=== PATIENT | female | born 1960 | race Two or more races ===

== ENCOUNTER 2018-06-10 07:46 | Outpatient (CLI) | payer OTHER ==
[~2018-06-10 07:46] MED LIST: INDERAL LA80 MG PO; LISINOPRIL20 MG PO
== END 2018-06-10 08:10 | disposition home or self-care (01) ==
LOC: LAB 07:46
DX: E56.1 Deficiency of vitamin K (principal); M81.8 Other osteoporosis without current pathological fracture; E21.3 Hyperparathyroidism, unspecified; M79.672 Pain in left foot

== ENCOUNTER 2018-08-07 06:17 | Outpatient (CLI) | payer OTHER ==
[2018-08-13] MEDS ORDERED: IMITREX PO (12:51)
== END 2018-08-07 06:24 | disposition home or self-care (01) ==
LOC: LAB 06:17
DX: D64.89 Other specified anemias (principal); E88.89 Other specified metabolic disorders; D68.8 Other specified coagulation defects; N39.0 Urinary tract infection, site not specified; Z22.322 Carrier or suspected carrier of Methicillin resistant Staphylococcus aureus; Z76.89 Persons encountering health services in other specified circumstances; I49.8 Other specified cardiac arrhythmias

== ENCOUNTER 2018-08-21 06:16 | Day surgery (SDC) | payer OTHER ==
[~2018-08-21 06:16] MED LIST changes: +IMITREX PO
== END 2018-08-21 15:50 | disposition home or self-care (01) ==
LOC: CIR.AMB 06:16
DX: M19.172 Post-traumatic osteoarthritis, left ankle and foot (principal); S92.312K Displaced fracture of first metatarsal bone, left foot, subsequent encounter for fracture with nonunion; T84.84XA Pain due to internal orthopedic prosthetic devices, implants and grafts, initial encounter; M65.872 Other synovitis and tenosynovitis, left ankle and foot

== ENCOUNTER 2018-10-14 13:37 | Outpatient (CLI) | payer OTHER | END 2018-10-14 13:39 | disposition home or self-care (01) | LOC: RAD 13:37 | DX: M79.672 Pain in left foot (principal) ==

== ENCOUNTER 2018-11-25 14:11 | Outpatient (CLI) | payer OTHER | END 2018-11-25 17:00 | disposition home or self-care (01) | LOC: RAD 14:11 | DX: M79.672 Pain in left foot (principal) ==

== ENCOUNTER → 2019-01-06 | Outpatient (CLI) | payer OTHER | END | disposition home or self-care (01) | LOC: RAD 14:44 | DX: S93.32 Subluxation and dislocation of tarsometatarsal joint (principal); M79.672 Pain in left foot ==

== ENCOUNTER 2019-07-22 08:04 | Outpatient (CLI) | payer OTHER | END 2019-07-22 08:10 | disposition home or self-care (01) | LOC: RAD 08:04 | PROVIDERS: ATTEND Orthopaedic Surgery | DX: M79.672 Pain in left foot (principal); I87.2 Venous insufficiency (chronic) (peripheral); H34.821 Venous engorgement, right eye; H34.822 Venous engorgement, left eye ==

== ENCOUNTER 2019-07-22 11:00 | Outpatient (CLI) | payer OTHER | END 2019-07-22 11:30 | disposition home or self-care (01) | LOC: NUCLEAR 11:00 | PROVIDERS: ATTEND Obstetrics & Gynecology Gynecology | DX: H34.821 Venous engorgement, right eye (principal); H34.822 Venous engorgement, left eye; I87.2 Venous insufficiency (chronic) (peripheral) ==

== ENCOUNTER 2019-11-03 14:01 | Outpatient (CLI) | payer OTHER | END 2019-11-03 14:14 | disposition home or self-care (01) | LOC: RAD 14:01 | PROVIDERS: ATTEND Orthopaedic Surgery | DX: S93.32 Subluxation and dislocation of tarsometatarsal joint (principal); M79.672 Pain in left foot ==

== ENCOUNTER 2020-02-16 16:02 | Outpatient (CLI) | payer OTHER | END 2020-02-16 16:09 | disposition home or self-care (01) | LOC: RAD 16:02 | PROVIDERS: ATTEND Orthopaedic Surgery | DX: M20.11 Hallux valgus (acquired), right foot (principal); M79.671 Pain in right foot ==

== ENCOUNTER 2020-02-22 05:55 | Day surgery (SDC) | payer OTHER | END 2020-02-22 16:30 | disposition home or self-care (01) | LOC: CIR.AMB 05:55 | PROVIDERS: ATTEND Orthopaedic Surgery | DX: T84.84XA Pain due to internal orthopedic prosthetic devices, implants and grafts, initial encounter (principal); M20.12 Hallux valgus (acquired), left foot; M24.575 Contracture, left foot; M21.612 Bunion of left foot; Z20.828 Contact with and (suspected) exposure to other viral communicable diseases ==

== ENCOUNTER 2020-04-13 13:54 | Outpatient (CLI) | payer OTHER | END 2020-04-13 14:04 | disposition home or self-care (01) | LOC: RAD 13:54 | PROVIDERS: ATTEND Orthopaedic Surgery | DX: M79.672 Pain in left foot (principal); M20.12 Hallux valgus (acquired), left foot ==

== ENCOUNTER → 2020-05-31 | Outpatient (CLI) | payer OTHER | END | disposition home or self-care (01) | LOC: RAD 14:56 | PROVIDERS: ATTEND Orthopaedic Surgery | DX: M79.672 Pain in left foot (principal); M20.12 Hallux valgus (acquired), left foot ==

== ENCOUNTER 2020-08-22 08:58 | Outpatient (CLI) | payer OTHER | END 2020-08-22 15:02 | disposition home or self-care (01) | LOC: LAB 08:58 | PROVIDERS: ATTEND Orthopaedic Surgery | DX: E55.9 Vitamin D deficiency, unspecified (principal); M85.9 Disorder of bone density and structure, unspecified; E21.3 Hyperparathyroidism, unspecified; M81.8 Other osteoporosis without current pathological fracture; E88.9 Metabolic disorder, unspecified; E83.42 Hypomagnesemia; E56.1 Deficiency of vitamin K ==

== ENCOUNTER 2020-09-26 11:50 | Outpatient (CLI) | payer OTHER | END 2020-09-26 12:01 | disposition home or self-care (01) | LOC: RAD 11:50 | PROVIDERS: ATTEND Orthopaedic Surgery | DX: M79.672 Pain in left foot (principal) ==

== ENCOUNTER 2021-05-07 09:42 | Outpatient (CLI) | payer OTHER | END 2021-05-07 09:55 | disposition home or self-care (01) | LOC: LAB 09:42 | PROVIDERS: ATTEND Orthopaedic Surgery | DX: D55.9 Anemia due to enzyme disorder, unspecified (principal); M85.9 Disorder of bone density and structure, unspecified; E21.3 Hyperparathyroidism, unspecified; E88.9 Metabolic disorder, unspecified; M81.8 Other osteoporosis without current pathological fracture; E56.1 Deficiency of vitamin K; E83.42 Hypomagnesemia ==

== ENCOUNTER 2021-07-18 09:53 | Outpatient (CLI) | payer OTHER | END 2021-07-18 10:27 | disposition home or self-care (01) | LOC: RAD 09:53 | PROVIDERS: ATTEND Orthopaedic Surgery | DX: M81.0 Age-related osteoporosis without current pathological fracture (principal) ==

== ENCOUNTER 2021-08-27 09:03 | Outpatient (CLI) | payer OTHER | END 2021-08-27 09:10 | disposition home or self-care (01) | LOC: TOM 09:03 | PROVIDERS: ATTEND Urology | DX: R31.21 Asymptomatic microscopic hematuria (principal) ==

== ENCOUNTER → 2021-08-27 11:47 | Outpatient (CLI) | payer OTHER | END | disposition home or self-care (01) | LOC: LAB 11:47 | PROVIDERS: ATTEND Radiology Diagnostic Radiology | DX: R31.21 Asymptomatic microscopic hematuria (principal) ==

== ENCOUNTER 2023-04-21 11:29 | Outpatient (CLI) | payer OTHER | END 2023-04-21 11:42 | disposition home or self-care (01) | LOC: RAD 11:29 | PROVIDERS: ATTEND Orthopaedic Surgery | DX: M25.511 Pain in right shoulder (principal); M79.672 Pain in left foot ==

== ENCOUNTER 2023-05-29 14:10 | Outpatient (CLI) | payer OTHER | END 2023-05-29 14:12 | disposition home or self-care (01) | LOC: RAD 14:10 | PROVIDERS: ATTEND Orthopaedic Surgery | DX: M79.641 Pain in right hand (principal); M79.644 Pain in right finger(s) ==

== ENCOUNTER 2023-12-08 09:31 | Outpatient (CLI) | payer OTHER | END 2023-12-08 09:34 | disposition home or self-care (01) | LOC: LAB 09:31 | PROVIDERS: ATTEND Orthopaedic Surgery | DX: E56.1 Deficiency of vitamin K (principal); E83.42 Hypomagnesemia ==

== ENCOUNTER 2023-12-08 09:56 | Outpatient (CLI) | payer OTHER | END 2023-12-08 10:00 | disposition home or self-care (01) | LOC: RAD 09:56 | PROVIDERS: ATTEND Orthopaedic Surgery | DX: M79.671 Pain in right foot (principal) ==

== ENCOUNTER → 2024-03-24 10:38 | Outpatient (CLI) | payer OTHER | END | disposition home or self-care (01) | LOC: LAB 10:38 | PROVIDERS: ATTEND Orthopaedic Surgery | DX: M85.9 Disorder of bone density and structure, unspecified (principal); E55.9 Vitamin D deficiency, unspecified ==

== ENCOUNTER 2024-03-24 11:28 | Outpatient (CLI) | payer OTHER | END 2024-03-24 11:34 | disposition home or self-care (01) | LOC: RAD 11:28 | PROVIDERS: ATTEND Orthopaedic Surgery | DX: M20.11 Hallux valgus (acquired), right foot (principal) ==

== ENCOUNTER → 2024-08-04 09:28 | Outpatient (CLI) | payer OTHER ==
[2024-08-04 10:23] LABS: BASO % 0.3 % (0.1-1.2); EOS # 0.15 (0.04-0.54); EOS % 1.5 % (0.7-7.0); HEMATOCRIT 43.6 % (34.1-44.9); HEMOGLOBIN 14.3 g/dL (11.2-15.7); LYMPH # 4.09 (1.18-3.74); LYMPH % 39.7 % (19.3-53.1); MEAN CORPUSCULAR HEMOGLOBIN 28.4 pg (25.6-32.2); MONO # 0.65 (0.24-0.82); MONO % 6.3 % (4.7-12.5); NEUT # 5.32 (1.56-6.13); NEUT % 51.7 % (34.0-71.1); PLATELET COUNT 280 K/uL (163-369); RED BLOOD COUNT 5.04 M/uL (3.93-5.22); RED CELL DISTRIBUTION WIDTH 13.7 % (11.6-14.4)
[2024-08-04 10:39] LABS: URINE APPEARANCE Clear; URINE BILIRRUBIN Negative (NEGATIVE); URINE COLOR Yellow; URINE GLUCOSE Negative (NEGATIVE); URINE KETONE Negative (NEGATIVE); URINE LEUKOCYTE Moderate; URINE NITRATE Negative; URINE PROTEIN Negative (NEGATIVE); URINE UROBILINOGEN 0.2 E.U./dl
[2024-08-04 10:40] LABS: URINE EPITHELIAL CELLS 6.8 uL (0.0-38.8); URINE WBC 102.5 uL (0.0-23.2)
[2024-08-04 10:42] LABS: URINE BACTERIA > 9821.5 uL (0.0-1933)
[2024-08-04 10:44] LABS: URINE BLOOD Traces
[2024-08-04 10:53] LABS: INR 0.97; PARTIAL THROMBOPLASTIN TIME 27.9 SECONDS (22.0-34.0); PROTHROMBIN TIME 10.6 SECONDS (9.0-11.5)
[2024-08-04 10:57] LABS: ALBUMIN 3.9 gm/dL (3.4-5.0); BILIRUBIN TOTAL 0.68 mg/dL (0.3-1.2); CALCIUM 9.4 mg/dL (8.5-10.1); COL EPI 109 SECONDS (82-175); CREATININE SERUM 0.71 mg/dL (0.55-1.02); GFR 83.14; GLOBULINA 3.1 G/DL (2.4-3.5); POTASSIUM 4.16 mEq/L (3.5-5.1)
== END | disposition home or self-care (01) ==
LOC: RAD 09:28
PROVIDERS: ATTEND Orthopaedic Surgery
DX: I10 Essential (primary) hypertension (principal); Z76.89 Persons encountering health services in other specified circumstances; D64.9 Anemia, unspecified; E88.9 Metabolic disorder, unspecified; D68.8 Other specified coagulation defects; N39.0 Urinary tract infection, site not specified; E11.8 Type 2 diabetes mellitus with unspecified complications

== ENCOUNTER 2024-08-11 10:49 | Outpatient (CLI) | payer OTHER ==
[2024-08-11] MEDS ORDERED: DIOVAN320 MG PO (15:55)
== END 2024-08-11 10:54 | disposition home or self-care (01) ==
LOC: RAD 10:49
PROVIDERS: ATTEND Orthopaedic Surgery
DX: M20.11 Hallux valgus (acquired), right foot (principal); M20.21 Hallux rigidus, right foot

== ENCOUNTER 2024-08-16 05:16 | Day surgery (SDC) | payer OTHER ==
[2024-08-11 15:56] VITALS: BP 130/77
[~2024-08-16] VITALS: Ht 162.6 cm; Wt 83.9 kg
[~2024-08-16 05:16] MED LIST changes: +DIOVAN320 MG PO
[2024-08-16] MEDS ORDERED: BUPIVACAINE HCL/MPF 0.5% 30ML VIAL ONE (06:45)
[2024-08-16] MEDS ORDERED: CEFTRIAXONE SODIUM 2,000 MG VIAL ONE (06:59)
[2024-08-16] MEDS ORDERED: MORPHINE SULFATE 4 MG/ML VIAL IV ONE (10:40)
== END 2024-08-16 15:45 | disposition home or self-care (01) ==
LOC: CIR.AMB 05:16
PROVIDERS: ATTEND Orthopaedic Surgery
DX: M20.11 Hallux valgus (acquired), right foot (principal); M21.621 Bunionette of right foot; D16.31 Benign neoplasm of short bones of right lower limb; T84.84XA Pain due to internal orthopedic prosthetic devices, implants and grafts, initial encounter
CPT/HCPCS: 28298; 20902; 20680; L8699

== ENCOUNTER 2024-09-08 08:03 | Outpatient (CLI) | payer OTHER | END 2024-09-08 08:06 | disposition home or self-care (01) | LOC: RAD 08:03 | PROVIDERS: ATTEND Orthopaedic Surgery | DX: M79.671 Pain in right foot (principal); N20.0 Calculus of kidney ==

== ENCOUNTER 2024-10-13 07:08 | Outpatient (CLI) | payer OTHER | END 2024-10-13 07:11 | disposition home or self-care (01) | LOC: RAD 07:08 | PROVIDERS: ATTEND Orthopaedic Surgery | DX: M79.672 Pain in left foot (principal) ==

== ENCOUNTER 2024-12-15 07:22 | Outpatient (CLI) | payer OTHER | END 2024-12-15 07:28 | disposition home or self-care (01) | LOC: RAD 07:22 | PROVIDERS: ATTEND Orthopaedic Surgery | DX: M79.671 Pain in right foot (principal) ==

== ENCOUNTER 2025-02-10 09:54 | Outpatient (CLI) | payer OTHER | END 2025-02-10 10:00 | disposition home or self-care (01) | LOC: SONOGRAMA 09:54 | DX: E04.2 Nontoxic multinodular goiter (principal) ==